=== PATIENT | male | born 1990 | race Caucasian/White ===

== ENCOUNTER 2018-04-29 14:57 | Inpatient (IN) | payer OTHER ==
[2018-04-29 15:47] VITALS: BMI 25.0
--- NOTE | 2018-04-29 19:57 | HP ---
CIWA Score Nausea/Vomitin-Int. Nausea w/Dry Heave Muscle Tremors: 3 Anxiety: 4-Mod. Anxious/Guarded Agitation: 0-Normal Activity Paroxysmal Sweats: 1-Minimal Palms Moist Orientation: 1-Uncertain about Date Tacttile Disturbances: 2-Mild Itch/Numbness/Burn (pruritus) Auditory Disturbances: 0-None Visual Disturbances: 2-Mild Sensitivity Headache: 0-None Present CIWA-Ar Total Score: 17 - Admission Criteria [facility]ASAS Guidelines: Admission for Medically Managed Detox: Requires at least one of the followin. CIWA greater than 12 2. Seizures within the past 24 hours 3. Delirium tremens within the past 24 hours 4. Hallucinations within the past 24 hours 5. Acute intervention needed for co occurring medical disorder 6. Acute intervention needed for co occurring psychiatric disorder 7. Severe withdrawal that cannot be handled at a lower level of care (continued vomiting, continued diarrhea, abnormal vital signs) requiring intravenous medication and/or fluids 8. Patient presents the following: CIWA greater than 12 Admission Criteria Met: Admission criteria met Admission ROS [facility] - HPI Chief Complaint: " I need librium " Allergies/Adverse Reactions: Allergies Allergy/AdvReac Type Severity Reaction Status Date / Time No Known Allergies Allergy Verified 04/29/18 20:10 History of Present Illness: 27 yo male currently homeless with hx of polysubstance use : heroin (nasal), crack /cocaine, ketamine, methamphetamine, xanax. kaci and alcohol, patient suffers from alcohol dependence is here for alcohol detox. Patient was seen and referred by [facility]. PMHX: GERD, gastritis, ADHD, Depression, PTSD, insomnia. Patient reports hx of visual hallucinations while intoxicated, alcohol related seizure, with last episode three years ago and frequent alcohol related blackouts. Denies suicidal / homicidal ideation or suicide attempt. Reports no significant period of sobriety. Exam Limitations: No Limitations - Ebola screening Have you traveled outside of the country in the last 21 days: No Have you had contact with anyone from an Ebola affected area: No Have you been sick,other than usual withdrawal symptoms: No - Review of Systems Constitutional: Chills, Diaphoresis, Loss of Appetite, Changes in sleep, Other ( "shakes") EENT: reports: No Symptoms Reported Respiratory: reports: No Symptoms reported Cardiac: reports: See HPI, Palpitations GI: reports: Nausea, Poor Appetite, Vomiting, Indigestion : reports: No Symptoms Reported Musculoskeletal: reports: No Symptoms Reported Integumentary: reports: Dryness, Pruritus Neuro: reports: Tingling, Other (hands and feet cramps) Endocrine: reports: Excessive Sweating, Increased Thirst Hematology: reports: No Symptoms Reported Psychiatric: reports: Orientated x3, Anxious, Depressed Other Systems: Reviewed and Negative Patient History - Patient Medical History Hx Anemia: No Hx Asthma: No Hx Chronic Obstructive Pulmonary Disease (COPD): No Hx Cancer: No Hx Cardiac Disorders: No Hx Congestive Heart Failure: No Hx Hypertension: No Hx Hypercholesterolemia: No Hx Pacemaker: No HX Cerebrovascular Accident: No Hx Seizures: Yes (alcohol related three years ago ) Hx Dementia: No Hx Diabetes: No Hx Gastrointestinal Disorders: Yes (GERD, gastritis ) Hx Liver Disease: No Hx Genitourinary Disorders: No Hx Sexually Transmitted Disorders: No Hx Renal Disease (ESRD): No Hx Thyroid Disease: No Hx Human Immunodeficiency Virus (HIV): No Hx Hepatitis C: No Hx Depression: Yes Hx Suicide Attempt: No Hx Bipolar Disorder: No Hx Schizophrenia: No - Patient Surgical History Past Surgical History: No - PPD History Previous Implant?: No Implanted On Prior [facility] Admission?: No PPD to be Administered?: Yes - Smoking Cessation Smoking history: Current every day smoker Have you smoked in the past 12 months: Yes Aproximately how many cigarettes per day: 2 Hx Chewing Tobacco Use: No Initiated information on smoking cessation: Yes 'Breaking Loose' booklet given: 04/29/18 - Substance & Tx. History Hx Alcohol Use: Yes Hx Substance Use: Yes Substance Use Type: Alcohol, Cocaine, Heroin, Marijuana, Tranquilizers Hx Substance Use Treatment: Yes ([facility] January 2018) - Substances Abused alcohol Route: Oral Frequency: Daily Amount used: 3 pints + 6 beers x 24 oz Age of first use: 18 Date of Last Use: 04/29/18 marijuana Route: Smoking Frequency: Daily Amount used: 5 blunts Age of first use: 13 Date of Last Use: 04/29/18 xanax Route: Oral Frequency: Daily Amount used: unknown Age of first use: 17 Date of Last Use: 04/08/18 Family Disease History - Family Disease History Family Disease History: Diabetes: Father () Admission Physical Exam [facility] - Vital Signs Vital Signs: Vital Signs - 24 hr 04/29/18 15:45 Temperature 99.4 F Pulse Rate 84 Respiratory 18 Rate Blood Pressure 139/81 - Physical General Appearance: Yes: Disheveled, Moderate Distress, Thin, Tremorous, Sweating, Anxious HEENTM: Yes: EOMI, Hearing grossly Normal, Normal ENT Inspection, Normocephalic , Normal Voice, JOANNA, Pharynx Normal, Tm's normal, Other (poor dentition, dy mucous membranes) Respiratory: Yes: Chest Non-Tender, Lungs Clear, Normal Breath Sounds, No Respiratory Distress, No Accessory Muscle Use Neck: Yes: Within Normal Limits Breast: Yes: Breast Exam Deferred Cardiology: Yes: Regular Rhythm, Regular Rate Abdominal: Yes: Normal Bowel Sounds, Non Tender, Flat, Soft Genitourinary: Yes: Within Normal Limits Back: Yes: Normal Inspection Musculoskeletal: Yes: full range of Motion, Gait Steady, Pelvis Stable Extremities: Yes: Normal Capillary Refill, Normal Inspection, Normal Range of Motion, Non-Tender Neurological: Yes: meat processor II-XII NML intact, Fully Oriented, Alert, Motor Strength 5/5, Depressed Affect Integumentary: Yes: Normal Color, Warm, Diaphoresis - Diagnostic (1) Alcohol dependence with withdrawal Current Visit: Yes Status: Acute Qualifiers: Complication of substance-induced condition: uncomplicated Qualified Code(s ): F10.230 - Alcohol dependence with withdrawal, uncomplicated (2) Sedative hypnotic or anxiolytic dependence Current Visit: Yes Status: Acute (3) Cannabis dependence Current Visit: Yes Status: Acute (4) Nicotine dependence Current Visit: Yes Status: Acute Qualifiers: Nicotine product type: cigarettes (5) GERD (gastroesophageal reflux disease) Current Visit: Yes Status: Chronic Cleared for Admission [facility] - Detox or Rehab [facility] Level of Care: Medically Managed Detox Regimen/Protocol: Librium [facility] Breath Alcohol Content Breath Alcohol Content: 0 Urine Drug Screen - Results Drug Screen Negative: No Urine Drug Screen Results: THC-Marijuana, BZO-Benzodiazepines Inpatient Rehab Admission - Rehab Decision to Admit Inpatient rehab admission?: No
[2018-04-29] MEDS ORDERED: MAG HYDROX/AL HYDROX/SIMETH 30 ML UNIT-DOSE CUP PO PRN (20:26)
[2018-04-29] MEDS ORDERED: METHOCARBAMOL 500 MG TABLET PO PRN (20:26)
[2018-04-29] MEDS ORDERED: ACETAMINOPHEN 325 MG TABLET (FP) PO PRN ×2 (20:26)
[2018-04-29] MEDS ORDERED: chlordiazePOXIDE HCL 25 MG CAPSULE PO PRN (20:26)
[2018-04-29] MEDS ORDERED: IBUPROFEN 400 MG TABLET (FP) PO PRN (20:26)
[2018-04-29] MEDS ORDERED: MENTHOL/PHENOL 1 EACH UD MM PRN (20:26)
[2018-04-29] MEDS ORDERED: hydrOXYzine PAMOATE 25 MG CAPSULE (FP) PO PRN (20:26)
[2018-04-29] MEDS ORDERED: MELATONIN 5 MG TABLETS PO PRN (20:26)
[2018-04-29] MEDS ORDERED: MAGNESIUM CITRATE 300 ML BOTTLE PO PRN (20:26)
[2018-04-29] MEDS ORDERED: BISMUTH SUBSALICYLATE 524 MG/30 ML UD PO PRN (20:26)
[2018-04-29] MEDS ORDERED: MAGNESIUM HYDROX 2400MG/30ML ORAL SUSPENSION 30 ML CUP PO PRN (20:26)
[2018-04-29] MEDS ORDERED: chlordiazePOXIDE HCL 25 MG CAPSULE PO ONE (20:31)
[2018-04-29] MEDS ORDERED: BACLOFEN 10 MG TABLET (FP) PO PRN (20:31)
[2018-04-29] MEDS ORDERED: ONDANSETRON *ODT* 4 MG TABLET SL PRN (20:31)
[2018-04-29] MEDS ORDERED: guaiFENesin 200 MG/10 ML 10 ML UNIT-DOSE CUPS PO PRN (20:31)
[2018-04-29] MEDS ORDERED: NICOTINE POLACRILEX 2 MG GUM BUC PRN (20:31)
[2018-04-29] MEDS ORDERED: THIAMINE HCL 100 MG TABLET (FP) PO SCH (22:00)
[2018-04-29] MEDS: chlordiazePOXIDE HCL 25 MG CAPSULE PO SCH (22:40)
[2018-04-30 05:22] LABS: URINE APPEARANCE CLEAR; URINE BILIRUBIN NEGATIVE (<2.0 mg/dL); URINE COLOR AMBER; URINE GLUCOSE (UA) NEGATIVE (NEGATIVE); URINE KETONE TRACE (NEGATIVE); URINE LEUK ESTERASE NEGATIVE (NEGATIVE); URINE NITRITE NEGATIVE (NEGATIVE); URINE PROTEIN 1+ (NEGATIVE); URINE UROBILINOGEN 4.0 E.U/dl mg/dL (0.2-1.0)
[2018-04-30 05:50] LABS: URINE MUCUS RARE
[2018-04-30] MEDS: chlordiazePOXIDE HCL 25 MG CAPSULE PO SCH ×2 (06:42→10:36)
[2018-04-30] MEDS ORDERED: NICOTINE 14 MG/24 HOURS TOPICAL PATCH TD SCH (10:00)
[2018-04-30] MEDS ORDERED: PRENATAL VITAMINS W/ FOLIC ACID TABLET (FP) PO SCH (10:00)
[2018-04-30] MEDS ORDERED: PANTOPRAZOLE 40 MG TABLET (FP) PO SCH (10:00)
[2018-04-30 10:56] LABS: HEMATOCRIT 41.5 % (35.4-49); HEMOGLOBIN 14.4 GM/dL (11.7-16.9); MCH 33.5 pg (25.7-33.7); MCHC 34.8 g/dl (32.0-35.9); MEAN CELL VOLUME 96.3 fl (80-96); MEAN PLT VOLUME 8.1 fl (7.5-11.1); PLATELET COUNT 236 K/MM3 (134-434); RBC 4.31 M/mm3 (4.00-5.60); RDW 14.7 % (11.9-15.9); WHITE BLOOD COUNT 3.9 K/mm3 (4.0-10.0)
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
[2018-04-30 11:12] LABS: ALK PHOS 87 U/L (45-117); ANION GAP 4 MMOL/L (8-16); BILIRUBIN,TOTAL 0.7 mg/dL (0.2-1); BLOOD UREA NITROGEN 11 mg/dL (7-18); CALCIUM 9.2 mg/dL (8.5-10.1); CHLORIDE 101 mmol/L (98-107); CO2 30 mmol/L (21-32); CREATININE 0.9 mg/dL (0.55-1.3); GLUCOSE,RANDOM 106 mg/dL (74-106); POTASSIUM 4.2 mmol/L (3.5-5.1); SGOT/AST 158 U/L (15-37); SGPT/ALT 243 U/L (13-61); SODIUM 135 mmol/L (136-145); TOT PROT 8.2 g/dl (6.4-8.2)
--- NOTE | 2018-04-30 13:06 | PN ---
S CIWA - CIWA Score Nausea/Vomitin-Mild Nausea/No Vomiting Muscle Tremors: 4-Moderate,w/Arms Extend Anxiety: 4-Mod. Anxious/Guarded Agitation: 4-Moderately Restless Paroxysmal Sweats: 3 Orientation: 0-Oriented Tacttile Disturbances: 0-None Auditory Disturbances: 0-None Visual Disturbances: 0-None Headache: 0-None Present CIWA-Ar Total Score: 16 [facility] Progress Note (SOAP) Subjective: sweats anxiety shakes interrupted sleep body aches Objective: 04/30/18 13:04 Vital Signs Temperature 97.9 F 04/30/18 09:05 Pulse Rate 82 04/30/18 09:05 Respiratory Rate 18 04/30/18 09:05 Blood Pressure 147/77 04/30/18 09:05 O2 Sat by Pulse Oximetry (%) Laboratory Tests 04/29/18 04/30/18 04/30/18 22:59 07:00 07:00 WBC 3.9 L RBC 4.31 Hgb 14.4 Hct 41.5 MCV 96.3 H MCH 33.5 MCHC 34.8 RDW 14.7 Plt Count 236 MPV 8.1 Sodium 135 L Potassium 4.2 Chloride 101 Carbon Dioxide 30 Anion Gap 4 L BUN 11 Creatinine 0.9 Creat Clearance w eGFR > 60 Random Glucose 106 Calcium 9.2 Total Bilirubin 0.7 AST 158 H ALT 243 H Alkaline Phosphatase 87 Total Protein 8.2 Albumin 4.0 Urine Color [place] Urine Appearance Clear Urine pH 7.0 Ur Specific [place] 1.027 Urine Protein 1+ H Urine Glucose (UA) Negative Urine Ketones Trace H Urine Blood Negative Urine Nitrite Negative Urine Bilirubin Negative Urine Urobilinogen 4.0 e.u/dl Ur Leukocyte Esterase Negative Urine WBC (Auto) <1 Urine RBC (Auto) 3 Urine Mucus Rare HIV 1&2 Antibody Screen HIV P24 Antigen 04/30/18 07:00 WBC RBC Hgb Hct MCV MCH MCHC RDW Plt Count MPV Sodium Potassium Chloride Carbon Dioxide Anion Gap BUN Creatinine Creat Clearance w eGFR Random Glucose Calcium Total Bilirubin AST ALT Alkaline Phosphatase Total Protein Albumin Urine Color Urine Appearance Urine pH Ur Specific [place] Urine Protein Urine Glucose (UA) Urine Ketones Urine Blood Urine Nitrite Urine Bilirubin Urine Urobilinogen Ur Leukocyte Esterase Urine WBC (Auto) Urine RBC (Auto) Urine Mucus HIV 1&2 Antibody Screen Negative HIV P24 Antigen Negative labs noted elevated ast/alt; repeat labs encouraged fluid intake [id number] ambulating no acute distress Assessment: 04/30/18 13:05 withdrawal sx Plan: continue detox increase fluids repeat ast/alt d/c tylenol
[2018-04-30] MEDS ORDERED: LOPERAMIDE HCL 2 MG CAPSULE PO PRN (13:22)
--- NOTE | 2018-04-30 14:07 | EKG ---
Test Reason : Blood Pressure : / mmHG Vent. Rate : 089 BPM Atrial Rate : 089 BPM P-R Int : 114 ms QRS Dur : 088 ms QT Int : 356 ms P-R-T Axes : 040 025 046 degrees QTc Int : 433 ms NORMAL SINUS RHYTHM EARLY REPOLARIZATION NO PREVIOUS ECGS AVAILABLE Confirmed by RUBEN KAM MD ([id number]) on 04/30/2018 2:07:08 PM Referred By: Confirmed By:RUBEN KAM MD
[2018-04-30 17:50] VITALS: BP 128/74; PULSE 78; TEMP 98.6
[2018-04-30] MEDS ORDERED: QUEtiapine FUMARATE 50 MG TABLET PO SCH (22:00)
[2018-04-30] MEDS ORDERED: chlordiazePOXIDE HCL 25 MG CAPSULE PO SCH (23:00)
[2018-05-01] MEDS ORDERED: chlordiazePOXIDE HCL 10 MG CAPSULE PO PRN (23:00)
[2018-05-01] MEDS ORDERED: chlordiazePOXIDE HCL 10 MG CAPSULE PO SCH (23:00)
[2018-05-02] MEDS ORDERED: chlordiazePOXIDE HCL 10 MG CAPSULE PO SCH (23:00)
== END 2018-04-30 19:30 | disposition left against medical advice (07) | DRG 770 ==
LOC: YASAS 14:57 → Y6N 22:06
PROVIDERS: ADMIT Surgery; ATTEND Surgery
PROC: HZ2ZZZZ Detoxification Services for Substance Abuse Treatment (ICD-10-PCS; principal; 2018-04-29)
DX: F10.230 Alcohol dependence with withdrawal, uncomplicated (principal); F13.230 Sedative, hypnotic or anxiolytic dependence with withdrawal, uncomplicated; F12.20 Cannabis dependence, uncomplicated; F17.210 Nicotine dependence, cigarettes, uncomplicated; F19.24 Other psychoactive substance dependence with psychoactive substance-induced mood disorder; F90.9 Attention-deficit hyperactivity disorder, unspecified type; F43.10 Post-traumatic stress disorder, unspecified; F32.9 Major depressive disorder, single episode, unspecified; K21.9 Gastro-esophageal reflux disease without esophagitis; G47.00 Insomnia, unspecified; Z86.69 Personal history of other diseases of the nervous system and sense organs; Z59.0 Homelessness
CPT/HCPCS: 36415; 80053; 81003; 81015; 85027; 86593; 87389; 93005; 93010; J0475

== ENCOUNTER 2020-09-23 18:33 | Inpatient (IN) | payer OTHER ==
[2020-09-23 19:30] VITALS: BMI 25.3
[2020-09-23] MEDS ORDERED: MAG HYDROX/AL HYDROX/SIMETH 30 ML UNIT-DOSE CUP PO PRN (22:08)
[2020-09-23] MEDS ORDERED: MAGNESIUM CITRATE 300 ML BOTTLE PO PRN (22:08)
[2020-09-23] MEDS ORDERED: MAGNESIUM HYDROX 2400MG/30ML ORAL SUSPENSION 30 ML CUP PO PRN (22:08)
[2020-09-23] MEDS ORDERED: BISMUTH SUBSALICYLATE 524 MG/30 ML PO PRN (22:08)
[2020-09-23] MEDS ORDERED: ACETAMINOPHEN 325 MG TABLET (FP) PO PRN ×2 (22:08)
[2020-09-23] MEDS ORDERED: MENTHOL/PHENOL 1 EACH UD MM PRN (22:08)
[2020-09-23] MEDS ORDERED: ONDANSETRON *ODT* 4 MG TABLET SL PRN (22:08)
[2020-09-24] MEDS: diazePAM 5 MG TABLET PO SCH ×5 (00:33→22:21)
[2020-09-24] MEDS: IBUPROFEN 400 MG TABLET (FP) PO PRN ×3 (00:41→17:47)
[2020-09-24] MEDS: METHOCARBAMOL 500 MG TABLET PO PRN ×2 (00:41→10:14)
[2020-09-24] MEDS: FAMOTIDINE 20 MG TABLET PO SCH ×2 (10:14→22:21)
[2020-09-24] MEDS: BACITRACIN 0.9 GM PACKET TP SCH ×2 (10:14→22:21)
[2020-09-24] MEDS: PRENATAL VITAMINS W/ FOLIC ACID TABLET (FP) PO SCH (10:14)
[2020-09-24] MEDS: amLODIPine BESYLATE 5 MG TABLET (FP) PO SCH (10:17)
[2020-09-24] MEDS: NICOTINE POLACRILEX 2 MG GUM BUC PRN ×2 (10:18→13:49)
[2020-09-24 11:07] LABS: HEMATOCRIT 33.5 % (35.4-49); HEMOGLOBIN 11.2 GM/dL (11.7-16.9); MCH 28.7 pg (25.7-33.7); MCHC 33.5 g/dl (32.0-35.9); MEAN CELL VOLUME 85.5 fl (80-96); MEAN PLT VOLUME 7.9 fl (7.5-11.1); PLATELET COUNT 187 10^3/uL (134-434); RBC 3.91 M/mm3 (4.00-5.60); RDW 18.9 % (11.9-15.9); WHITE BLOOD COUNT 3.7 K/mm3 (4.0-10.0)
[2020-09-24 11:12] LABS: CALCIUM 8.6 mg/dL (8.5-10.1)
[2020-09-24 11:13] LABS: ALBUMIN 3.6 g/dl (3.4-5.0)
[2020-09-24 11:15] LABS: BLOOD UREA NITROGEN 6.1 mg/dL (7-18)
[2020-09-24 11:16] LABS: CREATININE 0.7 mg/dL (0.55-1.3)
[2020-09-24 11:17] LABS: BILIRUBIN,TOTAL 0.4 mg/dL (0.2-1)
[2020-09-24 11:18] LABS: TOT PROT 6.5 g/dl (6.4-8.2)
[2020-09-24] MEDS: diazePAM 5 MG TABLET PO PRN (13:48)
[2020-09-24] MEDS ORDERED: NICOTINE 10 MG CARTRIDGE (INHALER) IH PRN (14:27)
[2020-09-24] MEDS: THIAMINE HCL 100 MG TABLET (FP) PO SCH (22:21)
[2020-09-24] MEDS: QUEtiapine FUMARATE 50 MG TABLET PO SCH (22:21)
[2020-09-24] MEDS: MELATONIN 5 MG TABLETS PO SCH (22:45)
[2020-09-25] MEDS: diazePAM 5 MG TABLET PO SCH ×3 (05:59→22:30)
[2020-09-25] MEDS: METHOCARBAMOL 500 MG TABLET PO PRN ×2 (08:41→22:29)
[2020-09-25] MEDS: IBUPROFEN 400 MG TABLET (FP) PO PRN (08:41)
[2020-09-25] MEDS: PRENATAL VITAMINS W/ FOLIC ACID TABLET (FP) PO SCH (10:03)
[2020-09-25] MEDS: FAMOTIDINE 20 MG TABLET PO SCH ×2 (10:03→22:29)
[2020-09-25] MEDS: BACITRACIN 0.9 GM PACKET TP SCH ×2 (10:03→22:27)
[2020-09-25] MEDS: amLODIPine BESYLATE 5 MG TABLET (FP) PO SCH (10:04)
[2020-09-25] MEDS: diazePAM 5 MG TABLET PO PRN (10:04)
[2020-09-25] MEDS: MELATONIN 5 MG TABLETS PO SCH (22:27)
[2020-09-25] MEDS: QUEtiapine FUMARATE 50 MG TABLET PO SCH (22:29)
[2020-09-25] MEDS: THIAMINE HCL 100 MG TABLET (FP) PO SCH (22:30)
[2020-09-26] MEDS: diazePAM 5 MG TABLET PO SCH ×2 (05:18→17:57)
[2020-09-26] MEDS: BACITRACIN 0.9 GM PACKET TP SCH ×2 (10:09→22:05)
[2020-09-26] MEDS: FAMOTIDINE 20 MG TABLET PO SCH ×2 (10:10→22:01)
[2020-09-26] MEDS: amLODIPine BESYLATE 5 MG TABLET (FP) PO SCH (10:10)
[2020-09-26] MEDS: PRENATAL VITAMINS W/ FOLIC ACID TABLET (FP) PO SCH (10:10)
[2020-09-26] MEDS: diazePAM 5 MG TABLET PO PRN ×2 (10:12→22:01)
[2020-09-26] MEDS ORDERED: NALTREXONE HCL 50 MG TABLET PO ONE (11:00)
[2020-09-26] MEDS: NICOTINE POLACRILEX 2 MG GUM BUC PRN (12:25)
[2020-09-26] MEDS: IBUPROFEN 400 MG TABLET (FP) PO PRN (17:59)
[2020-09-26] MEDS: THIAMINE HCL 100 MG TABLET (FP) PO SCH (22:01)
[2020-09-26] MEDS: QUEtiapine FUMARATE 50 MG TABLET PO SCH (22:01)
[2020-09-26] MEDS: METHOCARBAMOL 500 MG TABLET PO PRN (22:03)
[2020-09-26] MEDS: MELATONIN 5 MG TABLETS PO SCH (22:05)
[2020-09-27] MEDS ORDERED: NALTREXONE HCL 50 MG TABLET PO ONE (06:00)
[2020-09-27] MEDS ORDERED: diazePAM 5 MG TABLET PO ONE (06:00)
[2020-09-27] MEDS: IBUPROFEN 400 MG TABLET (FP) PO PRN (07:13)
[2020-09-27] MEDS: FAMOTIDINE 20 MG TABLET PO SCH (10:23)
[2020-09-27] MEDS: PRENATAL VITAMINS W/ FOLIC ACID TABLET (FP) PO SCH (10:23)
[2020-09-27] MEDS: amLODIPine BESYLATE 5 MG TABLET (FP) PO SCH (10:23)
[2020-09-27] MEDS: BACITRACIN 0.9 GM PACKET TP SCH (10:23)
[2020-09-27] MEDS: METHOCARBAMOL 500 MG TABLET PO PRN (13:08)
[2020-09-27 13:13] VITALS: BP 142/71; PULSE 102; TEMP 98
== END 2020-09-27 15:32 | disposition other institution (70) | DRG 775 ==
LOC: YASAS 18:33 → Y6N 23:04
PROVIDERS: ADMIT Allergy & Immunology; ATTEND Allergy & Immunology
PROC: HZ2ZZZZ Detoxification Services for Substance Abuse Treatment (ICD-10-PCS; principal; 2020-09-23)
DX: F10.230 Alcohol dependence with withdrawal, uncomplicated (principal); F10.24 Alcohol dependence with alcohol-induced mood disorder; F12.20 Cannabis dependence, uncomplicated; F17.213 Nicotine dependence, cigarettes, with withdrawal; F90.9 Attention-deficit hyperactivity disorder, unspecified type; F31.9 Bipolar disorder, unspecified; F43.10 Post-traumatic stress disorder, unspecified; I10 Essential (primary) hypertension; K21.9 Gastro-esophageal reflux disease without esophagitis; K29.20 Alcoholic gastritis without bleeding; R00.0 Tachycardia, unspecified; G47.00 Insomnia, unspecified; Z86.11 Personal history of tuberculosis; Z62.810 Personal history of physical and sexual abuse in childhood; Z86.69 Personal history of other diseases of the nervous system and sense organs; W22.8XXA Striking against or struck by other objects, initial encounter; Y93.89 Activity, other specified; Y92.231 Patient bathroom in hospital as the place of occurrence of the external cause; Z56.0 Unemployment, unspecified; Z59.0 Homelessness
CPT/HCPCS: 36415; 80053; 85027; 86780; 93005; 93010; C9803; Q0162; U0003; U0005

== ENCOUNTER 2020-09-27 15:45 | Inpatient (IN) | payer OTHER ==
[~2020-09-27 15:45] MED LIST: LOPERAMIDE HCL 2 MG CAPSULE PO PRN; MAG HYDROX/AL HYDROX/SIMETH 30 ML UNIT-DOSE CUP PO PRN; MAGNESIUM CITRATE 300 ML BOTTLE PO PRN; MAGNESIUM HYDROX 2400MG/30ML ORAL SUSPENSION 30 ML CUP PO PRN; NICOTINE 10 MG CARTRIDGE (INHALER) IH PRN; P-EPHED 60MG/TRIPROLIDI 2.5MG TABLET PO PRN; guaiFENesin 200 MG/10 ML 10 ML UNIT-DOSE CUPS PO PRN
[2020-09-27] MEDS: hydrOXYzine PAMOATE 25 MG CAPSULE (FP) PO SCH ×3 (19:17→21:40)
[2020-09-27] MEDS: BACITRACIN 0.9 GM PACKET TP SCH (21:38)
[2020-09-27] MEDS: MELATONIN 5 MG TABLETS PO SCH (21:39)
[2020-09-27] MEDS: IBUPROFEN 400 MG TABLET (FP) PO PRN (21:40)
[2020-09-27] MEDS: THIAMINE HCL 100 MG TABLET (FP) PO SCH (21:40)
[2020-09-27] MEDS: FAMOTIDINE 20 MG TABLET PO SCH (21:41)
[2020-09-28] MEDS: hydrOXYzine PAMOATE 25 MG CAPSULE (FP) PO SCH ×5 (06:12→21:34)
[2020-09-28] MEDS: BACITRACIN 0.9 GM PACKET TP SCH ×2 (09:56→21:34)
[2020-09-28] MEDS: amLODIPine BESYLATE 5 MG TABLET (FP) PO SCH (09:56)
[2020-09-28] MEDS: NALTREXONE HCL 50 MG TABLET PO SCH (09:56)
[2020-09-28] MEDS: FAMOTIDINE 20 MG TABLET PO SCH ×2 (09:56→21:34)
[2020-09-28] MEDS: IBUPROFEN 400 MG TABLET (FP) PO PRN (09:56)
[2020-09-28] MEDS: PRENATAL VITAMINS W/ FOLIC ACID TABLET (FP) PO SCH (09:56)
[2020-09-28 16:54] LABS: HIV INTERPRETATION NEGATIVE (NEGATIVE)
[2020-09-28] MEDS: THIAMINE HCL 100 MG TABLET (FP) PO SCH (21:33)
[2020-09-28] MEDS: MELATONIN 5 MG TABLETS PO SCH (21:33)
[2020-09-28] MEDS: QUEtiapine FUMARATE 50 MG TABLET PO SCH (21:34)
[2020-09-29] MEDS: hydrOXYzine PAMOATE 25 MG CAPSULE (FP) PO SCH ×5 (06:13→21:35)
[2020-09-29] MEDS: BACITRACIN 0.9 GM PACKET TP SCH ×2 (10:21→21:35)
[2020-09-29] MEDS: PRENATAL VITAMINS W/ FOLIC ACID TABLET (FP) PO SCH (10:21)
[2020-09-29] MEDS: FAMOTIDINE 20 MG TABLET PO SCH ×2 (10:21→21:35)
[2020-09-29] MEDS: amLODIPine BESYLATE 5 MG TABLET (FP) PO SCH (10:22)
[2020-09-29] MEDS: NALTREXONE HCL 50 MG TABLET PO SCH (10:22)
[2020-09-29] MEDS: NICOTINE POLACRILEX 2 MG GUM BC PRN (18:24)
[2020-09-29] MEDS: THIAMINE HCL 100 MG TABLET (FP) PO SCH (21:34)
[2020-09-29] MEDS: MELATONIN 5 MG TABLETS PO SCH (21:34)
[2020-09-29] MEDS: QUEtiapine FUMARATE 50 MG TABLET PO SCH (21:35)
[2020-09-30] MEDS: hydrOXYzine PAMOATE 25 MG CAPSULE (FP) PO SCH ×5 (06:22→21:05)
[2020-09-30] MEDS: IBUPROFEN 400 MG TABLET (FP) PO PRN ×2 (07:01→21:06)
[2020-09-30] MEDS: BACITRACIN 0.9 GM PACKET TP SCH ×2 (09:50→21:05)
[2020-09-30] MEDS: PRENATAL VITAMINS W/ FOLIC ACID TABLET (FP) PO SCH (09:50)
[2020-09-30] MEDS: FAMOTIDINE 20 MG TABLET PO SCH ×2 (09:50→21:05)
[2020-09-30] MEDS: amLODIPine BESYLATE 5 MG TABLET (FP) PO SCH (09:50)
[2020-09-30] MEDS: NALTREXONE HCL 50 MG TABLET PO SCH (09:50)
[2020-09-30] MEDS: ACETAMINOPHEN 325 MG TABLET (FP) PO PRN (09:51)
[2020-09-30] MEDS: MELATONIN 5 MG TABLETS PO SCH (21:05)
[2020-09-30] MEDS: QUEtiapine FUMARATE 50 MG TABLET PO SCH (21:05)
[2020-09-30] MEDS: THIAMINE HCL 100 MG TABLET (FP) PO SCH (21:05)
[2020-10-01] MEDS: hydrOXYzine PAMOATE 25 MG CAPSULE (FP) PO SCH ×5 (06:27→21:56)
[2020-10-01] MEDS ORDERED: MASKS NR ONE (06:54)
[2020-10-01] MEDS: NALTREXONE HCL 50 MG TABLET PO SCH (10:23)
[2020-10-01] MEDS: FAMOTIDINE 20 MG TABLET PO SCH ×2 (10:23→21:56)
[2020-10-01] MEDS: amLODIPine BESYLATE 5 MG TABLET (FP) PO SCH (10:23)
[2020-10-01] MEDS: PRENATAL VITAMINS W/ FOLIC ACID TABLET (FP) PO SCH (10:23)
[2020-10-01] MEDS: IBUPROFEN 400 MG TABLET (FP) PO PRN (10:24)
[2020-10-01] MEDS: BACITRACIN 0.9 GM PACKET TP SCH ×2 (10:24→21:56)
[2020-10-01] MEDS: METHOCARBAMOL 500 MG TABLET PO SCH ×2 (13:48→21:56)
[2020-10-01] MEDS: NICOTINE POLACRILEX 2 MG GUM BC PRN (18:06)
[2020-10-01] MEDS: QUEtiapine FUMARATE 50 MG TABLET PO SCH (21:56)
[2020-10-01] MEDS: THIAMINE HCL 100 MG TABLET (FP) PO SCH (21:56)
[2020-10-01] MEDS: MELATONIN 5 MG TABLETS PO SCH (22:04)
[2020-10-02] MEDS: hydrOXYzine PAMOATE 25 MG CAPSULE (FP) PO SCH ×5 (06:19→21:15)
[2020-10-02] MEDS: METHOCARBAMOL 500 MG TABLET PO SCH ×3 (06:19→21:13)
[2020-10-02] MEDS: IBUPROFEN 400 MG TABLET (FP) PO PRN ×3 (06:20→21:14)
[2020-10-02] MEDS: NICOTINE POLACRILEX 2 MG GUM BC PRN ×4 (06:23→21:13)
[2020-10-02] MEDS: PRENATAL VITAMINS W/ FOLIC ACID TABLET (FP) PO SCH (10:36)
[2020-10-02] MEDS: FAMOTIDINE 20 MG TABLET PO SCH ×2 (10:36→21:13)
[2020-10-02] MEDS: amLODIPine BESYLATE 5 MG TABLET (FP) PO SCH (10:36)
[2020-10-02] MEDS: NALTREXONE HCL 50 MG TABLET PO SCH (10:36)
[2020-10-02] MEDS: BACITRACIN 0.9 GM PACKET TP SCH ×2 (10:37→21:13)
[2020-10-02] MEDS: MELATONIN 5 MG TABLETS PO SCH (21:13)
[2020-10-02] MEDS: THIAMINE HCL 100 MG TABLET (FP) PO SCH (21:13)
[2020-10-02] MEDS: QUEtiapine FUMARATE 50 MG TABLET PO SCH (21:13)
[2020-10-03] MEDS: IBUPROFEN 400 MG TABLET (FP) PO PRN (06:06)
[2020-10-03] MEDS: METHOCARBAMOL 500 MG TABLET PO SCH ×3 (06:07→21:50)
[2020-10-03] MEDS: hydrOXYzine PAMOATE 25 MG CAPSULE (FP) PO SCH ×5 (06:07→21:50)
[2020-10-03] MEDS: BACITRACIN 0.9 GM PACKET TP SCH ×2 (10:43→21:50)
[2020-10-03] MEDS: FAMOTIDINE 20 MG TABLET PO SCH ×2 (10:43→21:49)
[2020-10-03] MEDS: PRENATAL VITAMINS W/ FOLIC ACID TABLET (FP) PO SCH (10:43)
[2020-10-03] MEDS: amLODIPine BESYLATE 5 MG TABLET (FP) PO SCH (10:43)
[2020-10-03] MEDS: NALTREXONE HCL 50 MG TABLET PO SCH (10:43)
[2020-10-03] MEDS: ACETAMINOPHEN 325 MG TABLET (FP) PO PRN (10:44)
[2020-10-03] MEDS: NICOTINE POLACRILEX 2 MG GUM BC PRN (10:45)
[2020-10-03] MEDS: QUEtiapine FUMARATE 50 MG TABLET PO SCH (21:50)
[2020-10-03] MEDS: THIAMINE HCL 100 MG TABLET (FP) PO SCH (21:50)
[2020-10-03] MEDS: MELATONIN 5 MG TABLETS PO SCH (21:50)
[2020-10-04] MEDS: hydrOXYzine PAMOATE 25 MG CAPSULE (FP) PO SCH ×5 (06:14→21:08)
[2020-10-04] MEDS: METHOCARBAMOL 500 MG TABLET PO SCH ×3 (06:14→21:08)
[2020-10-04] MEDS: IBUPROFEN 400 MG TABLET (FP) PO PRN ×2 (06:15→21:09)
[2020-10-04] MEDS: BACITRACIN 0.9 GM PACKET TP SCH ×2 (09:42→21:08)
[2020-10-04] MEDS: amLODIPine BESYLATE 5 MG TABLET (FP) PO SCH (09:42)
[2020-10-04] MEDS: PRENATAL VITAMINS W/ FOLIC ACID TABLET (FP) PO SCH (09:42)
[2020-10-04] MEDS: NALTREXONE HCL 50 MG TABLET PO SCH (09:42)
[2020-10-04] MEDS: FAMOTIDINE 20 MG TABLET PO SCH ×2 (09:42→21:08)
[2020-10-04] MEDS: NICOTINE POLACRILEX 2 MG GUM BC PRN ×2 (09:43→21:09)
[2020-10-04] MEDS: QUEtiapine FUMARATE 50 MG TABLET PO SCH (21:08)
[2020-10-04] MEDS: THIAMINE HCL 100 MG TABLET (FP) PO SCH (21:08)
[2020-10-04] MEDS: MELATONIN 5 MG TABLETS PO SCH (21:08)
[2020-10-05] MEDS: METHOCARBAMOL 500 MG TABLET PO SCH ×3 (06:09→21:49)
[2020-10-05] MEDS: IBUPROFEN 400 MG TABLET (FP) PO PRN ×2 (06:09→18:14)
[2020-10-05] MEDS: hydrOXYzine PAMOATE 25 MG CAPSULE (FP) PO SCH ×5 (06:09→21:49)
[2020-10-05] MEDS: amLODIPine BESYLATE 5 MG TABLET (FP) PO SCH (10:09)
[2020-10-05] MEDS: NALTREXONE HCL 50 MG TABLET PO SCH (10:09)
[2020-10-05] MEDS: PRENATAL VITAMINS W/ FOLIC ACID TABLET (FP) PO SCH (10:09)
[2020-10-05] MEDS: FAMOTIDINE 20 MG TABLET PO SCH ×2 (10:09→21:50)
[2020-10-05] MEDS: BACITRACIN 0.9 GM PACKET TP SCH ×2 (10:09→21:50)
[2020-10-05] MEDS: ACETAMINOPHEN 325 MG TABLET (FP) PO PRN (10:10)
[2020-10-05] MEDS: NICOTINE POLACRILEX 2 MG GUM BC PRN ×2 (10:13→21:50)
[2020-10-05] MEDS: QUEtiapine FUMARATE 50 MG TABLET PO SCH (21:49)
[2020-10-05] MEDS: THIAMINE HCL 100 MG TABLET (FP) PO SCH (21:49)
[2020-10-05] MEDS: MELATONIN 5 MG TABLETS PO SCH (21:49)
[2020-10-06] MEDS: METHOCARBAMOL 500 MG TABLET PO SCH ×3 (06:30→21:10)
[2020-10-06] MEDS: IBUPROFEN 400 MG TABLET (FP) PO PRN ×2 (06:30→14:02)
[2020-10-06] MEDS: hydrOXYzine PAMOATE 25 MG CAPSULE (FP) PO SCH ×5 (06:30→21:10)
[2020-10-06] MEDS: NICOTINE POLACRILEX 2 MG GUM BC PRN ×2 (06:31→21:11)
[2020-10-06] MEDS: PRENATAL VITAMINS W/ FOLIC ACID TABLET (FP) PO SCH (09:43)
[2020-10-06] MEDS: amLODIPine BESYLATE 5 MG TABLET (FP) PO SCH (09:44)
[2020-10-06] MEDS: FAMOTIDINE 20 MG TABLET PO SCH ×2 (09:44→21:10)
[2020-10-06] MEDS: BACITRACIN 0.9 GM PACKET TP SCH ×2 (09:44→21:47)
[2020-10-06] MEDS: NALTREXONE HCL 50 MG TABLET PO SCH (09:44)
[2020-10-06] MEDS: ACETAMINOPHEN 325 MG TABLET (FP) PO PRN (09:46)
[2020-10-06] MEDS: QUEtiapine FUMARATE 50 MG TABLET PO SCH (21:09)
[2020-10-06] MEDS: MELATONIN 5 MG TABLETS PO SCH (21:10)
[2020-10-06] MEDS: THIAMINE HCL 100 MG TABLET (FP) PO SCH (21:47)
[2020-10-07] MEDS: METHOCARBAMOL 500 MG TABLET PO SCH ×3 (06:34→21:38)
[2020-10-07] MEDS: hydrOXYzine PAMOATE 25 MG CAPSULE (FP) PO SCH ×5 (06:34→21:38)
[2020-10-07] MEDS: IBUPROFEN 400 MG TABLET (FP) PO PRN ×2 (06:34→21:39)
[2020-10-07] MEDS: FAMOTIDINE 20 MG TABLET PO SCH ×2 (10:22→21:38)
[2020-10-07] MEDS: BACITRACIN 0.9 GM PACKET TP SCH ×2 (10:22→21:39)
[2020-10-07] MEDS: NALTREXONE HCL 50 MG TABLET PO SCH (10:22)
[2020-10-07] MEDS: amLODIPine BESYLATE 5 MG TABLET (FP) PO SCH (10:22)
[2020-10-07] MEDS: PRENATAL VITAMINS W/ FOLIC ACID TABLET (FP) PO SCH (10:22)
[2020-10-07] MEDS: THIAMINE HCL 100 MG TABLET (FP) PO SCH (21:38)
[2020-10-07] MEDS: QUEtiapine FUMARATE 50 MG TABLET PO SCH (21:38)
[2020-10-07] MEDS: MELATONIN 5 MG TABLETS PO SCH (21:38)
[2020-10-08] MEDS: hydrOXYzine PAMOATE 25 MG CAPSULE (FP) PO SCH ×5 (06:30→21:08)
[2020-10-08] MEDS: METHOCARBAMOL 500 MG TABLET PO SCH ×3 (06:30→21:07)
[2020-10-08] MEDS: NALTREXONE HCL 50 MG TABLET PO SCH (10:44)
[2020-10-08] MEDS: amLODIPine BESYLATE 5 MG TABLET (FP) PO SCH (10:44)
[2020-10-08] MEDS: PRENATAL VITAMINS W/ FOLIC ACID TABLET (FP) PO SCH (10:44)
[2020-10-08] MEDS: FAMOTIDINE 20 MG TABLET PO SCH ×2 (10:45→21:07)
[2020-10-08] MEDS: BACITRACIN 0.9 GM PACKET TP SCH ×2 (10:45→21:07)
[2020-10-08] MEDS: IBUPROFEN 400 MG TABLET (FP) PO PRN (14:28)
[2020-10-08] MEDS: NICOTINE POLACRILEX 2 MG GUM BC PRN (14:30)
[2020-10-08] MEDS: THIAMINE HCL 100 MG TABLET (FP) PO SCH (21:07)
[2020-10-08] MEDS: QUEtiapine FUMARATE 50 MG TABLET PO SCH (21:07)
[2020-10-08] MEDS: MELATONIN 5 MG TABLETS PO SCH (21:07)
[2020-10-09] MEDS: METHOCARBAMOL 500 MG TABLET PO SCH ×3 (06:12→21:33)
[2020-10-09] MEDS: hydrOXYzine PAMOATE 25 MG CAPSULE (FP) PO SCH ×5 (06:12→21:33)
[2020-10-09] MEDS: NALTREXONE HCL 50 MG TABLET PO SCH (10:17)
[2020-10-09] MEDS: BACITRACIN 0.9 GM PACKET TP SCH ×2 (10:17→21:35)
[2020-10-09] MEDS: NICOTINE POLACRILEX 2 MG GUM BC PRN ×2 (10:18→21:33)
[2020-10-09] MEDS: IBUPROFEN 400 MG TABLET (FP) PO PRN ×2 (10:18→21:34)
[2020-10-09] MEDS: PRENATAL VITAMINS W/ FOLIC ACID TABLET (FP) PO SCH (10:18)
[2020-10-09] MEDS: FAMOTIDINE 20 MG TABLET PO SCH ×2 (10:18→21:33)
[2020-10-09] MEDS: amLODIPine BESYLATE 5 MG TABLET (FP) PO SCH (10:18)
[2020-10-09] MEDS: THIAMINE HCL 100 MG TABLET (FP) PO SCH (21:33)
[2020-10-09] MEDS: QUEtiapine FUMARATE 50 MG TABLET PO SCH (21:33)
[2020-10-09] MEDS: MELATONIN 5 MG TABLETS PO SCH (21:33)
[2020-10-10] MEDS: hydrOXYzine PAMOATE 25 MG CAPSULE (FP) PO SCH ×5 (06:50→21:17)
[2020-10-10] MEDS: METHOCARBAMOL 500 MG TABLET PO SCH ×3 (06:50→21:17)
[2020-10-10] MEDS: IBUPROFEN 400 MG TABLET (FP) PO PRN ×2 (06:51→21:19)
[2020-10-10] MEDS: NALTREXONE HCL 50 MG TABLET PO SCH (10:06)
[2020-10-10] MEDS: BACITRACIN 0.9 GM PACKET TP SCH ×2 (10:06→21:18)
[2020-10-10] MEDS: FAMOTIDINE 20 MG TABLET PO SCH ×2 (10:06→21:17)
[2020-10-10] MEDS: PRENATAL VITAMINS W/ FOLIC ACID TABLET (FP) PO SCH (10:06)
[2020-10-10] MEDS: amLODIPine BESYLATE 5 MG TABLET (FP) PO SCH (10:06)
[2020-10-10] MEDS: ACETAMINOPHEN 325 MG TABLET (FP) PO PRN (10:09)
[2020-10-10] MEDS: MELATONIN 5 MG TABLETS PO SCH (21:17)
[2020-10-10] MEDS: THIAMINE HCL 100 MG TABLET (FP) PO SCH (21:17)
[2020-10-10] MEDS: QUEtiapine FUMARATE 50 MG TABLET PO SCH (21:17)
[2020-10-10] MEDS: NICOTINE POLACRILEX 2 MG GUM BC PRN (21:20)
[2020-10-11] MEDS: METHOCARBAMOL 500 MG TABLET PO SCH (06:28)
[2020-10-11] MEDS: hydrOXYzine PAMOATE 25 MG CAPSULE (FP) PO SCH ×2 (06:28→09:11)
[2020-10-11 06:59] VITALS: BP 123/78; PULSE 74; TEMP 97.2
[2020-10-11] MEDS: amLODIPine BESYLATE 5 MG TABLET (FP) PO SCH (09:11)
[2020-10-11] MEDS: BACITRACIN 0.9 GM PACKET TP SCH (09:11)
[2020-10-11] MEDS: FAMOTIDINE 20 MG TABLET PO SCH (09:11)
[2020-10-11] MEDS: NALTREXONE HCL 50 MG TABLET PO SCH (09:11)
[2020-10-11] MEDS: PRENATAL VITAMINS W/ FOLIC ACID TABLET (FP) PO SCH (09:11)
[2020-10-11] MEDS: IBUPROFEN 400 MG TABLET (FP) PO PRN (09:12)
[2020-10-11] MEDS: NICOTINE POLACRILEX 2 MG GUM BC PRN (09:14)
== END 2020-10-11 10:05 | disposition home or self-care (01) | DRG 772 ==
LOC: YASAS 15:45 → Y3W 15:47
PROVIDERS: ADMIT Allergy & Immunology; ATTEND Allergy & Immunology
PROC: HZ42ZZZ Group Counseling for Substance Abuse Treatment, Cognitive-Behavioral (ICD-10-PCS; principal; 2020-09-27)
DX: F10.20 Alcohol dependence, uncomplicated (principal); F12.20 Cannabis dependence, uncomplicated; F17.210 Nicotine dependence, cigarettes, uncomplicated; F32.9 Major depressive disorder, single episode, unspecified; F90.9 Attention-deficit hyperactivity disorder, unspecified type; G47.00 Insomnia, unspecified; K21.9 Gastro-esophageal reflux disease without esophagitis; M25.532 Pain in left wrist; S69.92XA Unspecified injury of left wrist, hand and finger(s), initial encounter; W19.XXXA Unspecified fall, initial encounter; Z91.81 History of falling; Y93.9 Activity, unspecified; Y92.238 Other place in hospital as the place of occurrence of the external cause
CPT/HCPCS: 36415; 71046-TC-FY; 73090-TC-LT-FY; 73110-TC-LT-FY; 73110-TC-RT-FY; 73130-TC-RT-FY; 87389

== ENCOUNTER 2021-01-07 14:25 | Inpatient (IN) | payer OTHER ==
[2021-01-07] MEDS ORDERED: MENTHOL/PHENOL 1 EACH UD MM PRN (15:10)
[2021-01-07] MEDS ORDERED: MAGNESIUM CITRATE 300 ML BOTTLE PO PRN (15:10)
[2021-01-07] MEDS ORDERED: MAGNESIUM HYDROX 2400MG/30ML ORAL SUSPENSION 30 ML CUP PO PRN (15:10)
[2021-01-07] MEDS ORDERED: ONDANSETRON *ODT* 4 MG TABLET SL PRN (15:10)
[2021-01-07] MEDS ORDERED: ACETAMINOPHEN 325 MG TABLET (FP) PO PRN ×2 (15:10)
[2021-01-07] MEDS ORDERED: BISMUTH SUBSALICYLATE 524 MG/30 ML PO PRN (15:10)
[2021-01-07] MEDS ORDERED: IBUPROFEN 400 MG TABLET (FP) PO PRN (15:10)
[2021-01-07] MEDS ORDERED: diazePAM 5 MG TABLET ONE (15:24)
[2021-01-07] MEDS ORDERED: ONDANSETRON *ODT* 4 MG TABLET ONE (15:27)
[2021-01-07] MEDS: diazePAM 5 MG TABLET PO PRN ×2 (15:33→22:51)
[2021-01-07 15:34] VITALS: BMI 24.1
[2021-01-07] MEDS: diazePAM 5 MG TABLET PO SCH ×2 (17:53→23:39)
[2021-01-07] MEDS: hydrOXYzine PAMOATE 25 MG CAPSULE (FP) PO SCH ×2 (17:54→22:51)
[2021-01-07] MEDS ORDERED: METOPROLOL TARTRATE 50 MG TABLET (FP) PO ONE (18:25)
[2021-01-07] MEDS: METHOCARBAMOL 500 MG TABLET PO PRN (18:43)
[2021-01-07] MEDS: MELATONIN 5 MG TABLETS PO SCH (22:51)
[2021-01-07] MEDS: THIAMINE HCL 100 MG TABLET (FP) PO SCH (22:51)
[2021-01-08 00:26] LABS: URINE APPEARANCE CLEAR; URINE BILIRUBIN NEGATIVE (NEGATIVE); URINE COLOR DK YELLOW; URINE GLUCOSE (UA) NEGATIVE (NEGATIVE); URINE KETONE 2+ (NEGATIVE); URINE LEUK ESTERASE NEGATIVE (NEGATIVE); URINE NITRITE NEGATIVE (NEGATIVE); URINE PROTEIN TRACE (NEGATIVE)
[2021-01-08] MEDS: hydrOXYzine PAMOATE 25 MG CAPSULE (FP) PO SCH ×2 (05:43→10:44)
[2021-01-08] MEDS: diazePAM 5 MG TABLET PO SCH ×4 (05:43→22:15)
[2021-01-08] MEDS: PRENATAL VITAMINS W/ FOLIC ACID TABLET (FP) PO SCH (10:25)
[2021-01-08] MEDS: MAG HYDROX/AL HYDROX/SIMETH 30 ML UNIT-DOSE CUP PO PRN ×2 (10:26→17:13)
[2021-01-08 11:18] LABS: HEMATOCRIT 40.2 % (35.4-49); HEMOGLOBIN 13.5 GM/dL (11.7-16.9); MCH 28.8 pg (25.7-33.7); MCHC 33.6 g/dl (32.0-35.9); MEAN CELL VOLUME 85.8 fl (80-96); MEAN PLT VOLUME 8.3 fl (7.5-11.1); PLATELET COUNT 145 10^3/uL (134-434); RBC 4.69 M/mm3 (4.00-5.60); RDW 14.8 % (11.9-15.9); WHITE BLOOD COUNT 3.2 K/mm3 (4.0-10.0)
[2021-01-08 11:30] LABS: ALBUMIN 3.6 g/dl (3.4-5.0); BLOOD UREA NITROGEN 8.5 mg/dL (7-18)
[2021-01-08 11:33] LABS: CREATININE 0.6 mg/dL (0.55-1.3)
[2021-01-08 11:34] LABS: TOT PROT 6.6 g/dl (6.4-8.2)
[2021-01-08] MEDS: diazePAM 5 MG TABLET PO PRN (12:33)
[2021-01-08] MEDS ORDERED: AZITHROMYCIN 250 MG TABLET PO ONE (13:00)
[2021-01-08] MEDS: hydrOXYzine PAMOATE 25 MG CAPSULE (FP) PO PRN ×2 (14:17→22:14)
[2021-01-08 16:46] LABS: HIV INTERPRETATION NEGATIVE (NEGATIVE)
[2021-01-08] MEDS: QUEtiapine FUMARATE 50 MG TABLET PO SCH (22:14)
[2021-01-08] MEDS: FAMOTIDINE 20 MG TABLET PO SCH (22:14)
[2021-01-08] MEDS: MELATONIN 5 MG TABLETS PO SCH (22:14)
[2021-01-08] MEDS: THIAMINE HCL 100 MG TABLET (FP) PO SCH (22:14)
[2021-01-08] MEDS: METHOCARBAMOL 500 MG TABLET PO PRN (22:14)
[2021-01-09] MEDS: hydrOXYzine PAMOATE 25 MG CAPSULE (FP) PO PRN ×3 (06:10→22:38)
[2021-01-09] MEDS: diazePAM 5 MG TABLET PO SCH ×3 (06:10→23:09)
[2021-01-09] MEDS: amLODIPine BESYLATE 5 MG TABLET (FP) PO SCH (10:08)
[2021-01-09] MEDS: diazePAM 5 MG TABLET PO PRN ×3 (10:08→21:49)
[2021-01-09] MEDS: FAMOTIDINE 20 MG TABLET PO SCH ×2 (10:08→22:37)
[2021-01-09] MEDS: PRENATAL VITAMINS W/ FOLIC ACID TABLET (FP) PO SCH (10:52)
[2021-01-09] MEDS: THIAMINE HCL 100 MG TABLET (FP) PO SCH (22:37)
[2021-01-09] MEDS: QUEtiapine FUMARATE 50 MG TABLET PO SCH (22:37)
[2021-01-09] MEDS: MELATONIN 5 MG TABLETS PO SCH (22:37)
[2021-01-09] MEDS: METHOCARBAMOL 500 MG TABLET PO PRN (22:39)
[2021-01-09] MEDS: NICOTINE 10 MG CARTRIDGE (INHALER) IH PRN (22:40)
[2021-01-10] MEDS: diazePAM 5 MG TABLET PO SCH ×2 (06:25→17:34)
[2021-01-10] MEDS: FAMOTIDINE 20 MG TABLET PO SCH ×2 (10:11→21:38)
[2021-01-10] MEDS: PRENATAL VITAMINS W/ FOLIC ACID TABLET (FP) PO SCH (10:11)
[2021-01-10] MEDS: diazePAM 5 MG TABLET PO PRN (10:12)
[2021-01-10] MEDS: amLODIPine BESYLATE 5 MG TABLET (FP) PO SCH (10:12)
[2021-01-10] MEDS: hydrOXYzine PAMOATE 25 MG CAPSULE (FP) PO PRN ×3 (10:14→21:38)
[2021-01-10 11:33] LABS: SGOT/AST 205 U/L (15-37); SGPT/ALT 261 U/L (13-61)
[2021-01-10] MEDS: METHOCARBAMOL 500 MG TABLET PO PRN (21:38)
[2021-01-10] MEDS: QUEtiapine FUMARATE 50 MG TABLET PO SCH (21:38)
[2021-01-10] MEDS: MELATONIN 5 MG TABLETS PO SCH (21:38)
[2021-01-10] MEDS: THIAMINE HCL 100 MG TABLET (FP) PO SCH (21:38)
[2021-01-10] MEDS: NICOTINE 10 MG CARTRIDGE (INHALER) IH PRN (22:41)
[2021-01-11] MEDS ORDERED: diazePAM 5 MG TABLET PO ONE (06:00)
[2021-01-11 08:39] VITALS: BP 128/79; PULSE 82; TEMP 96
== END 2021-01-11 09:53 | disposition home or self-care (01) | DRG 774 ==
LOC: YASAS 14:25 → Y3N 15:50
PROVIDERS: ADMIT Allergy & Immunology; ATTEND Allergy & Immunology
PROC: HZ2ZZZZ Detoxification Services for Substance Abuse Treatment (ICD-10-PCS; principal; 2021-01-07)
DX: F10.230 Alcohol dependence with withdrawal, uncomplicated (principal); F14.10 Cocaine abuse, uncomplicated; F12.20 Cannabis dependence, uncomplicated; F17.210 Nicotine dependence, cigarettes, uncomplicated; F31.9 Bipolar disorder, unspecified; F19.282 Other psychoactive substance dependence with psychoactive substance-induced sleep disorder; F19.24 Other psychoactive substance dependence with psychoactive substance-induced mood disorder; F90.9 Attention-deficit hyperactivity disorder, unspecified type; I10 Essential (primary) hypertension; K21.9 Gastro-esophageal reflux disease without esophagitis; R74.01 Elevation of levels of liver transaminase levels; Z62.810 Personal history of physical and sexual abuse in childhood; Z86.19 Personal history of other infectious and parasitic diseases; Z56.0 Unemployment, unspecified; Z59.00 Homelessness unspecified
CPT/HCPCS: 36415; 80053; 81003; 84450; 84460; 85027; 86780; 87086; 87389; 87491; 87591; 87661; C9803; Q0162; U0003; U0005